=== PATIENT | male | born 1930 | race Caucasian/White ===

== ENCOUNTER 2016-09-06 07:23 | Emergency (ER) | payer MEDICARE, OTHER ==
[~2016-09-06] VITALS: Ht 175.3 cm; Wt 80.1 kg
[~2016-09-06 07:23] MED LIST: APIX2.5T PO; CARV6.252 PO; FURO1TAB93 PO; LEVO75TA41 PO; LISI-363 PO; MEVA40TA6 PO
[2016-09-06 07:27] VITALS: BP 143/74; PULSE 70; RESP 15; TEMP 97.7; O2SAT 95
[2016-09-06] MEDS ORDERED: CARV6.252 PO (07:43)
[2016-09-06] MEDS ORDERED: OMEGCAP PO (07:43)
[2016-09-06] MEDS ORDERED: ATOR40TA16 PO (07:43)
[2016-09-06] MEDS ORDERED: K-TA10TA PO (07:43)
[2016-09-06] MEDS ORDERED: LEVO75TA3 PO (07:43)
[2016-09-06] MEDS ORDERED: APIX5TAB PO (07:43)
[2016-09-06] MEDS ORDERED: FURO40TA PO (07:43)
[2016-09-06] MEDS ORDERED: LISI-515 PO (07:43)
[2016-09-06] MEDS ORDERED: LIDOCAINE HCL 1% 30 ML VIAL INFIL ONE (07:45)
--- NOTE | 2016-09-06 07:58 | PD ---
HPI Chief Complaint: Laceration/Skin Injury Time Seen by Provider: 07:42 Travel History International Travel<30 days: No Contact w/Intl Traveler<30days: No Traveled to known affect area: No History of Present Illness HPI Patient is an 86-year-old male who presents to emergency room with complaints of laceration to his left medial ankle. Patient reports that he was at home, reports that a clock fell onto his left ankle this morning. No fall or trauma to the head or neck after this injury. Patient's last tetanus was 7 years ago. Patient is on Eliquis. Patient reports that he was unable to control the bleeding at home. Patient with no other complaints. 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) Neurologic: Yes Psychiatric: No Reproductive: No Respiratory: No Immunizations Current: No Radiation Therapy: Yes (1996) Sleep Apnea: No Thyroid Disease: Yes (HYPOTHYROIDISM) Tetanus Vaccination: Unknown Influenza Vaccination: Yes ?: Not Past Surgical History Abdominal Surgery: Yes (COLON RESECTION) Cardiac Surgery: Yes (VALVE) Coronary Artery Bypass Graft: Yes (VALVE SURGERY) Eye Surgery: Yes (CATARACT REMOVAL) Thoracic Surgery: No Tonsillectomy: Yes Valve Replacement: Yes (2002 AORTIC ) Other Surgery: Yes (PROSTATE RADIATION) Social History Alcohol Use: Yes (OCCASIONALLY, WINE/BEER) Tobacco Use: No Substance Use: No Allergies-Medications (Allergen,Severity, Reaction): Coded Allergies: No Known Allergies (Verified , 09/06/16) Reported Meds & Prescriptions Reported Meds & Active Scripts Active Reported [place]-3 Fish Oil/Vitamin (Fish Oil-Cholecalciferol) 1,000-1,000 Mg Cap 1 Cap PO BID K-Tab (Potassium Chloride) 10 Meq Tab 10 Meq PO DAILY Atorvastatin (Atorvastatin Calcium) 40 Mg Tab 40 Mg PO HS Carvedilol 6.25 Mg Tab 6.25 Mg PO BID Lisinopril 20 Mg Tab 20 Mg PO DAILY Levothyroxine (Levothyroxine Sodium) 75 Mcg Tab 75 Mcg PO DAILY Furosemide 40 Mg Tab 40 Mg PO DAILY Eliquis (Apixaban) 5 Mg Tab 5 Mg PO BID Review of Systems General / Constitutional: No: Fever Eyes: No: Visual changes HENT: No: Headaches Cardiovascular: No: Chest Pain or Discomfort Respiratory: No: Shortness of Breath Gastrointestinal: No: Abdominal Pain Genitourinary: No: Dysuria Musculoskeletal: No: Pain Skin: Positive Other (laceration to left medial ankle), No Rash Neurologic: No: Weakness Psychiatric: No: Depression Endocrine: No: Polydipsia Hematologic/Lymphatic: No: Easy Bruising Physical Exam Narrative GENERAL: Well-nourished, well-developed patient. SKIN: Focused skin assessment warm/dry. Patient with 1 cm laceration to left medial ankle, bleeding controlled HEAD: Normocephalic. EYES: No scleral icterus. No injection or drainage. NECK: Supple, trachea midline. No JVD or lymphadenopathy. CARDIOVASCULAR: Regular rate and rhythm without murmurs, gallops, or rubs. RESPIRATORY: Breath sounds equal bilaterally. No accessory muscle use. GASTROINTESTINAL: Abdomen soft, non-tender, nondistended. MUSCULOSKELETAL: No cyanosis, or edema. BACK: Nontender without obvious deformity. No CVA tenderness. Data Data Last Documented VS Vital Signs Date Time Temp Pulse Resp B/P Pulse Ox O2 Delivery O2 Flow Rate FiO2 09/06/16 07:27 97.7 70 15 143/74 95 Orders Lidocaine 1% Inj (Xylocaine 1% Inj) (09/06/16 07:45) Dcae-Ukl-Aiyuju (Booster) Inj (Boostrix (09/06/16 08:00) Lidocaine 1% Inj (50 Ml) (Xylocaine 1% I (09/06/16 08:00) Tetanus/Diphtheria Tox Adult (Tetanus/Di (09/06/16 08:00) Bacitracin Oint Packet (Bacitracin Oint (09/06/16 08:00) MDM Medical Decision Making Medical Screen Exam Complete: Yes Emergency Medical Condition: Yes Interpretation(s) Vital Signs Date Time Temp Pulse Resp B/P Pulse Ox O2 Delivery O2 Flow Rate FiO2 09/06/16 07:27 97.7 70 15 143/74 95 Differential Diagnosis Laceration on Eliquis Narrative Course Patient is an 86-year-old male who presents to emergency room with complaints of a one centimeter laceration to his left medial ankle. Patient reports that a clock fell onto his ankle this morning. two simple interrupted sutures were placed to ankle. Patient will return to emergency room in 2 days for wound check. Signs and symptoms of when to return to emergency room was reviewed with patient detail. Procedures Procedure Narrative LACERATION LOCATION: left medial ankle LENGTH: 1cm NUMBER OF STITCHES/KAYLI: 2 single interrupted sutures using 4.0 prolene REPAIR: The area of the laceration was prepped with Betadine and sterilely draped. The laceration was infiltrated with 1% lidocaine. The wound was copiously irrigated and explored without evidence of foreign body, tendon injury or neurovascular injury. The wound was closed using 4.0 prolene. This was a single layer repair. A sterile dressing was applied. The patient was advised to keep the dressing clean and dry. Patient tolerated the procedure well. Diagnosis Primary Impression: Laceration of ankle, left Qualified Code: S91.012A - Laceration of ankle, left, initial encounter Patient Instructions: General Instructions Additional Instructions: Please follow up with your primary care doctor Suture removal in 7-[address] bac[address]racin dressings three times a day Return to ER in 48 hours for wound check or if you develop any signs of infection, redness or drainage to area Disposition: 01 DISCHARGE HOME Condition: Stable Jenny Caldwell DO Sep 06, 2016 07:58
[2016-09-06] MEDS ORDERED: LIDOCAINE HCL 1% 50 ML VIAL INFIL ONE (08:00)
[2016-09-06] MEDS ORDERED: BACITRACIN OINT 0.9 GM PKT TOPICAL ONE (08:00)
[2016-09-06] MEDS ORDERED: DIPHTH/TETANUS/ACEL PERTUSSIS (BOOSTER) 0.5 ML VIAL/PFS IM ONE (08:00)
[2016-09-06] MEDS ORDERED: TETANUS/DIPHTHERIA TOXOID ADULT 0.5 ML VIAL IM ONE (08:00)
== END 2016-09-06 08:41 | disposition home or self-care (01) ==
LOC: PHED 07:23
DX: S91.019A Laceration without foreign body, unspecified ankle, initial encounter (principal); E03.9 Hypothyroidism, unspecified; I10 Essential (primary) hypertension; H91.90 Unspecified hearing loss, unspecified ear; Z23 Encounter for immunization; I25.10 Atherosclerotic heart disease of native coronary artery without angina pectoris; I50.9 Heart failure, unspecified; Z79.01 Long term (current) use of anticoagulants; F41.9 Anxiety disorder, unspecified; Z95.1 Presence of aortocoronary bypass graft; Z95.2 Presence of prosthetic heart valve; Z86.73 Personal history of transient ischemic attack (TIA), and cerebral infarction without residual deficits
CPT/HCPCS: 12001; 90471; 90714

== ENCOUNTER 2016-11-25 11:50 | Emergency (ER) | payer MEDICARE ==
[~2016-11-25] VITALS: Ht 175.3 cm; Wt 84.0 kg
[~2016-11-25 11:50] MED LIST changes: -APIX2.5T PO; +APIX5TAB PO; +ATOR40TA16 PO; -FURO1TAB93 PO; +FURO40TA PO; +K-TA10TA PO; +LEVO75TA3 PO; -LEVO75TA41 PO; -LISI-363 PO; +LISI-515 PO; -MEVA40TA6 PO; +OMEGCAP PO
[2016-11-25 11:51] VITALS: BP 179/89; PULSE 59; RESP 18; TEMP 98.2; O2SAT 96
--- NOTE | 2016-11-25 11:56 | PD ---
Physical Exam Time Seen by Provider: 11:54 Narrative 86 y/o male here with h/a, nausea, dizziness. he woke up with these symptoms this morning. Denies acute focal weakness, slurred speech, facial droop, blurred vision. Vital signs reviewed. Seen at triage desk. Awaiting bed placement. Data Data Last Documented VS Vital Signs Date Time Temp Pulse Resp B/P Pulse Ox O2 Delivery O2 Flow Rate FiO2 11/25/16 11:51 98.2 59 18 179/89 96 Room Air [facility] Medical Record Reviewed: Yes Supervised Visit with TERENCE: Kong Walton Nov 25, 2016 11:56
--- NOTE | 2016-11-25 12:01 | PD ---
HPI Chief Complaint: Neuro Symptoms/ Deficits Time Seen by Provider: 12:01 Travel History International Travel<30 days: No Contact w/Intl Traveler<30days: No Traveled to known affect area: No History of Present Illness HPI 86-year-old male with history of CAD, CABG, cardiac catheter with stent placement, hypertension, BPH, presents to emergency department today for evaluation of an episode where he became nauseous, lightheaded, and almost passed out. This happened this morning. He states he also had associated headache. States now he is having very minimal symptoms. Reports a mild headache and feeling tired. Denies any head trauma. He did not actually pass out. No recent illnesses, fever, chills. No chest tightness. No other symptoms to report. 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) Neurologic: Yes Psychiatric: No Reproductive: No Respiratory: No Immunizations Current: No Radiation Therapy: Yes (1996) Sleep Apnea: No Thyroid Disease: Yes (HYPOTHYROIDISM) Past Surgical History Abdominal Surgery: Yes (COLON RESECTION) Cardiac Surgery: Yes (VALVE) Coronary Artery Bypass Graft: Yes (VALVE SURGERY) Eye Surgery: Yes (CATARACT REMOVAL) Thoracic Surgery: No Tonsillectomy: Yes Valve Replacement: Yes (2002 AORTIC ) Other Surgery: Yes (PROSTATE RADIATION) Social History Alcohol Use: Yes (OCCASIONALLY, WINE/BEER) Tobacco Use: No Substance Use: No Allergies-Medications (Allergen,Severity, Reaction): Coded Allergies: No Known Allergies (Verified , 11/25/16) Reported Meds & Prescriptions Reported Meds & Active Scripts Active Keflex (Cephalexin) 500 Mg Cap 500 Mg PO Q12H 10 Days Reported [place]-3 Fish Oil/Vitamin (Fish Oil-Cholecalciferol) 1,000-1,000 Mg Cap 1 Cap PO BID K-Tab (Potassium Chloride) 10 Meq Tab 10 Meq PO DAILY Atorvastatin (Atorvastatin Calcium) 40 Mg Tab 40 Mg PO HS Carvedilol 6.25 Mg Tab 6.25 Mg PO BID Lisinopril 20 Mg Tab 20 Mg PO DAILY Levothyroxine (Levothyroxine Sodium) 75 Mcg Tab 75 Mcg PO DAILY Furosemide 40 Mg Tab 40 Mg PO DAILY Eliquis (Apixaban) 5 Mg Tab 5 Mg PO BID Review of Systems Except as stated in HPI: all other systems reviewed are Neg Physical Exam Narrative GENERAL: Well-nourished elderly male patient, no acute distress SKIN: Focused skin assessment warm/dry. HEAD: Atraumatic. Normocephalic. EYES: Pupils equal and round. No scleral icterus. No injection or drainage. ENT: No nasal bleeding or discharge. Mucous membranes pink and moist. NECK: Trachea midline. No JVD. CARDIOVASCULAR: Bradycardic rate and rhythm. No murmur appreciated. RESPIRATORY: No accessory muscle use. Clear to auscultation. Breath sounds equal bilaterally. GASTROINTESTINAL: Abdomen soft, non-tender, nondistended. Hepatic and splenic margins not palpable. MUSCULOSKELETAL: No obvious deformities. No clubbing. No cyanosis. No edema. NEUROLOGICAL: Awake and alert. No obvious cranial nerve deficits. Motor grossly within normal limits. Normal speech. PSYCHIATRIC: Appropriate mood and affect; insight and judgment normal. Data Data Last Documented VS Vital Signs Date Time Temp Pulse Resp B/P Pulse Ox O2 Delivery O2 Flow Rate FiO2 11/25/16 14:43 63 24 162/83 11/25/16 14:41 98 Room Air 11/25/16 11:51 98.2 Orders Electrocardiogram (11/25/16 ) Complete Blood Count With Diff (11/25/16 12:34) Comprehensive Metabolic Panel (11/25/16 12:34) Magnesium (Mg) (11/25/16 12:34) B-Type Natriuretic Peptide (11/25/16 12:34) Ckmb (Isoenzyme) Profile (11/25/16 12:34) Troponin I (11/25/16 12:34) Act Partial Throm Time (Ptt) (11/25/16 12:34) Prothrombin Time / Inr (Pt) (11/25/16 12:34) Urinalysis - C+S If Indicated (11/25/16 12:34) Chest, Single Ap (11/25/16 12:34) Ct Brain W/O Iv Contrast(Rout) (11/25/16 12:34) Ecg Monitoring (11/25/16 12:34) Iv Access Insert/Monitor (11/25/16 12:34) Oximetry (11/25/16 12:34) Sodium Chloride 0.9% Flush (Ns Flush) (11/25/16 12:45) Orthostatic Vital Signs (11/25/16 13:25) CKMB (11/25/16 12:45) CKMB% (11/25/16 12:45) Urine Culture (11/25/16 15:15) Labs Laboratory Tests Test 11/25/16 11/25/16 12:45 15:15 White Blood Count 6.9 TH/MM3 Red Blood Count 4.40 MIL/MM3 Hemoglobin 13.7 GM/DL Hematocrit 41.1 % Mean Corpuscular Volume 93.5 FL Mean Corpuscular Hemoglobin 31.2 PG Mean Corpuscular Hemoglobin 33.4 % Concent Red Cell Distribution Width 14.4 % Platelet Count 146 TH/MM3 Mean Platelet Volume 8.5 FL Neutrophils (%) (Auto) 76.4 % Lymphocytes (%) (Auto) 10.8 % Monocytes (%) (Auto) 8.5 % Eosinophils (%) (Auto) 3.8 % Basophils (%) (Auto) 0.5 % Neutrophils # (Auto) 5.3 TH/MM3 Lymphocytes # (Auto) 0.7 TH/MM3 Monocytes # (Auto) 0.6 TH/MM3 Eosinophils # (Auto) 0.3 TH/MM3 Basophils # (Auto) 0.0 TH/MM3 CBC Comment DIFF FINAL Differential Comment Prothrombin Time 11.8 SEC Prothromb Time International 1.1 RATIO Ratio Activated Partial 29.5 SEC Thromboplast Time Sodium Level 141 MEQ/L Potassium Level 4.7 MEQ/L Chloride Level 106 MEQ/L Carbon Dioxide Level 27.7 MEQ/L Anion Gap 7 MEQ/L Blood Urea Nitrogen 24 MG/DL Creatinine 1.27 MG/DL Estimat Glomerular Filtration 54 ML/MIN Rate Random Glucose 86 MG/DL Calcium Level 9.1 MG/DL Magnesium Level 2.1 MG/DL Total Bilirubin 1.2 MG/DL Aspartate Amino Transf 32 U/L (AST/SGOT) Alanine Aminotransferase 30 U/L (ALT/SGPT) Alkaline Phosphatase 112 U/L Total Creatine Kinase 269 U/L Creatine Kinase MB 5.5 NG/ML Troponin I 0.02 NG/ML B-Type Natriuretic Peptide 275 PG/ML Total Protein 6.4 GM/DL Albumin 3.3 GM/DL Urine Color YELLOW Urine Turbidity CLEAR Urine pH 7.0 Urine Specific [place] 1.019 Urine Protein TRACE mg/dL Urine Glucose (UA) NEG mg/dL Urine Ketones NEG mg/dL Urine Occult Blood NEG Urine Nitrite NEG Urine Bilirubin NEG Urine Urobilinogen 2.0 MG/DL Urine Leukocyte Esterase MOD Urine RBC 1 /hpf Urine WBC 20 /hpf Urine Bacteria RARE /hpf Urine Mucus FEW /lpf Microscopic Urinalysis Comment CULTURE INDICATED MDM Medical Decision Making Medical Screen Exam Complete: Yes Emergency Medical Condition: Yes Medical Record Reviewed: Yes Differential Diagnosis Electrolyte abnormality versus orthostatic hypotension versus symptomatic bradycardia versus sick sinus syndrome Narrative Course 86-year-old male presents to [facility] department for evaluation. Patient appears without distress. No focal deficits or weakness. She is bradycardic with rate into the mid 40s. He is dizzy with orthostatic vital signs, however his vital signs remained stable. Laboratory Tests Test 11/25/16 11/25/16 12:45 15:15 White Blood Count 6.9 TH/MM3 Red Blood Count 4.40 MIL/MM3 Hemoglobin 13.7 GM/DL Hematocrit 41.1 % Mean Corpuscular Volume 93.5 FL Mean Corpuscular Hemoglobin 31.2 PG Mean Corpuscular Hemoglobin 33.4 % Concent Red Cell Distribution Width 14.4 % Platelet Count 146 TH/MM3 Mean Platelet Volume 8.5 FL Neutrophils (%) (Auto) 76.4 % Lymphocytes (%) (Auto) 10.8 % Monocytes (%) (Auto) 8.5 % Eosinophils (%) (Auto) 3.8 % Basophils (%) (Auto) 0.5 % Neutrophils # (Auto) 5.3 TH/MM3 Lymphocytes # (Auto) 0.7 TH/MM3 Monocytes # (Auto) 0.6 TH/MM3 Eosinophils # (Auto) 0.3 TH/MM3 Basophils # (Auto) 0.0 TH/MM3 CBC Comment DIFF FINAL Differential Comment Prothrombin Time 11.8 SEC Prothromb Time International 1.1 RATIO Ratio Activated Partial 29.5 SEC Thromboplast Time Sodium Level 141 MEQ/L Potassium Level 4.7 MEQ/L Chloride Level 106 MEQ/L Carbon Dioxide Level 27.7 MEQ/L Anion Gap 7 MEQ/L Blood Urea Nitrogen 24 MG/DL Creatinine 1.27 MG/DL Estimat Glomerular Filtration 54 ML/MIN Rate Random Glucose 86 MG/DL Calcium Level 9.1 MG/DL Magnesium Level 2.1 MG/DL Total Bilirubin 1.2 MG/DL Aspartate Amino Transf 32 U/L (AST/SGOT) Alanine Aminotransferase 30 U/L (ALT/SGPT) Alkaline Phosphatase 112 U/L Total Creatine Kinase 269 U/L Creatine Kinase MB 5.5 NG/ML Troponin I 0.02 NG/ML B-Type Natriuretic Peptide 275 PG/ML Total Protein 6.4 GM/DL Albumin 3.3 GM/DL Urine Color YELLOW Urine Turbidity CLEAR Urine pH 7.0 Urine Specific [place] 1.019 Urine Protein TRACE mg/dL Urine Glucose (UA) NEG mg/dL Urine Ketones NEG mg/dL Urine Occult Blood NEG Urine Nitrite NEG Urine Bilirubin NEG Urine Urobilinogen 2.0 MG/DL Urine Leukocyte Esterase MOD Urine RBC 1 /hpf Urine WBC 20 /hpf Urine Bacteria RARE /hpf Urine Mucus FEW /lpf Microscopic Urinalysis Comment CULTURE INDICATED Last Impressions Head CT 11/25/16 1234 Signed Impressions: Service Date/Time: Friday, November 25, 2016 13:49 - CONCLUSION: Chronic and small vessel ischemic changes without any evidence for acute hemorrhage or mass effect. Brendan Elizabeth MD Chest X-Ray 11/25/16 1234 Signed Impressions: Service Date/Time: Friday, November 25, 2016 12:35 - CONCLUSION: 1. No acute cardiopulmonary findings. 2. Postsurgical changes. 3. Stable compared to previous. Mansoor Stephen MD I discussed the patient with my attending physician who recommends contacting his gamb cutter. I discussed him with Dr. Ely who very familiar with him and unless the patient wants to stay for pacer placement, he feels comfortable with patient following up with him in the office this week. Patient is thrilled with this news and is excited to be discharged. He agrees to return immediately with any acute worsening of symptoms. Diagnosis Primary Impression: Postural dizziness with near syncope Additional Impressions: Bradycardia UTI (urinary tract infection) Qualified Code: N39.0 - Urinary tract infection without hematuria, site unspecified Referrals: Dereje Ely MD Primary Care Physician Patient Instructions: Bradycardia (ED), General Instructions, Urinary Tract Infection in Men (DC) Additional Instructions: Follow-up with her primary care provider Contact Dr. Juarez's office for follow-up this week Return immediately with any acute worsening of symptoms Med/Other Pt SpecificInfo: Prescription(s) given Scripts Cephalexin (Keflex)500 Mg Aol333 Mg PO Q12H 10 Days Ref 0 Prov:Sarah Beth Hart 11/25/16 Disposition: 01 DISCHARGE HOME Condition: Stable Sarah Beth Hart Nov 25, 2016 12:01
[2016-11-25 12:11] VITALS: BP 133/71; PULSE 67; RESP 18; O2SAT 98
[2016-11-25] MEDS ORDERED: SODIUM CHLORIDE 0.9% FLUSH 10 ML FLUSH IVF PRN (12:45)
[2016-11-25 13:07] LABS: AUTOMATED NEUTROPHIL # 5.3 TH/MM3 (1.8-7.7); BASOPHIL % 0.5 % (0.0-2.0); EOSINOPHIL # 0.3 TH/MM3 (0-0.4); EOSINOPHIL % 3.8 % (0.0-4.0); HEMATOCRIT 41.1 % (39.0-51.0); HEMO FLAGS DIFF FINAL; LYMPH % 10.8 % (9.0-44.0); LYMPHOCYTE # 0.7 TH/MM3 (1.0-4.8); MEAN CELL VOLUME 93.5 FL (80.0-100.0); MEAN CORPUSCULAR HEMOGLOBIN 31.2 PG (27.0-34.0); MEAN CORPUSCULAR HGB CONC 33.4 % (32.0-36.0); MONO % 8.5 % (0.0-8.0); NEUT % 76.4 % (16.0-70.0); PLATELET COUNT 146 TH/MM3 (150-450); RED CELL DISTRIBUTION WIDTH 14.4 % (11.6-17.2); WHITE BLOOD COUNT 6.9 TH/MM3 (4.0-11.0)
[2016-11-25 13:21] LABS: APTT (PATIENT) 29.5 SEC (24.3-30.1); INTERNATIONAL NORMALIZED RATIO 1.1 RATIO; PROTHROMBIN TIME - PATIENT 11.8 SEC (9.8-11.6)
--- NOTE | 2016-11-25 13:21 | RADRPT ---
EXAM DATE/TIME: 11/25/2016 12:35 [facility] COMPARISON: CHEST PA & LAT, June 22, 2015, 19:51. INDICATIONS : Dizzy, nauseous. MEDICAL HISTORY : heart attack at 11. SURGICAL HISTORY : CABG. ENCOUNTER: Initial ACUITY: 1 day PAIN SCORE: 0/10 LOCATION: Bilateral chest FINDINGS: The heart is at the upper limits of normal in size. The patient is post median sternotomy. There are chronic interstitial changes within the pulmonary parenchyma. The lungs are otherwise clear. The visu alized bony structures are intact. CONCLUSION: 1. No acute cardiopulmonary findings. 2. Postsurgical changes. 3. Stable compared to previous. Mansoor Stephen MD on November 25, 2016 at 13:17 Board Certified Radiologist. This report was verified electronically.
[2016-11-25 13:37] LABS: ANION GAP 7 MEQ/L (5-15); AST (GOT) 32 U/L (15-37); BICARBONATE 27.7 MEQ/L (21.0-32.0); BLOOD UREA NITROGEN 24 MG/DL (7-18); CHLORIDE 106 MEQ/L (98-107); GLOMERULAR FILTRATION RATE 54 ML/MIN (>89); MAGNESIUM 2.1 MG/DL (1.5-2.5); POTASSIUM 4.7 MEQ/L (3.5-5.1); SODIUM (NA) 141 MEQ/L (136-145)
[2016-11-25 13:38] LABS: ALT (GPT) 30 U/L (12-78)
[2016-11-25 13:42] LABS: ALKALINE PHOSPHATASE 112 U/L (45-117); CREATINE KINASE 269 U/L (39-308); TOTAL BILIRUBIN ADULT 1.2 MG/DL (0.2-1.0)
[2016-11-25 13:57] LABS: CKMB 5.5 NG/ML (0.5-3.6)
--- NOTE | 2016-11-25 14:27 | RADRPT ---
EXAM DATE/TIME: 11/25/2016 13:49 [facility] COMPARISON: CT BRAIN W/O CONTRAST, November 12, 2012, 19:07. INDICATIONS : Headache,nausea dizzy,recent stroke. RADIATION DOSE: 33.83 CTDIvol (mGy) MEDICAL HISTORY : Hypothyroidism. Cardiovascular disease Hypertension.Colon cancer,prostate cancer SURGICAL HISTORY : Colon resection. CABG ENCOUNTER: Initial ACUITY: 1 day PAIN SCALE: 5/10 LOCATION: cranial TECHNIQUE: Multiple contiguous axial images were obtained of the head. Using automated exposure control and adj ustment of the mA and/or kV according to patient size, radiation dose was kept as low as reasonably a chievable to obtain optimal diagnostic quality images. DICOM format image data is available electro nically for review and comparison. FINDINGS: There is no evidence for intracranial hemorrhage, mass effect, mass lesions, or edema. The visualize d bony structures appear intact. Moderate degree of brain atrophy is seen. Moderate periventricular white matter changes are seen nonspecific mostly consistent with chronic small vessel ischemic change s. There are no signs of acute infarction for technique. CONCLUSION: Chronic and small vessel ischemic changes without any evidence for acute hemorrhage o r mass effect. Brendan Elizabeth MD on November 25, 2016 at 14:24 Board Certified Radiologist. This report was verified electronically.
[2016-11-25 14:41] VITALS: BP 145/69; PULSE 50; RESP 16; RESP 21; O2SAT 98
[2016-11-25 14:43] VITALS: BP 162/83; RESP 24
[2016-11-25 15:32] LABS: BACTERIA, URINE RARE /hpf; BLOOD, URINE NEG (NEG); COMMENT (UR) CULTURE INDICATED; CULTURE IF INDICATED CULTURE INDICATED; GLUCOSE,URINE NEG (NEG); KETONE, URINE NEG (NEG); MUCUS URINE FEW /lpf (OCC); NITRITE,URINE NEG (NEG); URINE COLOR YELLOW (YELLW/STRAW)
[2016-11-25] MEDS ORDERED: CEPH-460 PO (15:51)
--- NOTE | 2016-11-26 17:12 | EKG ---
Date Performed: 11/25/2016 Time Performed: 12:07:02 PTAGE: 86 years EKG: SINUS BRADYCARDIA WITH FIRST DEGREE AV BLOCK INFERIOR MYOCARDIAL INFARCTION ABNORMAL ECG PREVIOUS TRACING : 06/22/2015 19.22 Compared to the previous tracing PVCs no longer present DOCTOR: Bethany Smith Interpretating Date/Time 11/26/2016 17:10:53
== END 2016-11-25 16:10 | disposition home or self-care (01) ==
LOC: NEPC 11:50
DX: R42 Dizziness and giddiness (principal); R55 Syncope and collapse; R00.1 Bradycardia, unspecified; N39.0 Urinary tract infection, site not specified; R11.0 Nausea; Z95.1 Presence of aortocoronary bypass graft; R51 Headache; E03.9 Hypothyroidism, unspecified; I11.0 Hypertensive heart disease with heart failure; I44.0 Atrioventricular block, first degree; H91.93 Unspecified hearing loss, bilateral; R94.31 Abnormal electrocardiogram [ECG] [EKG]; Z79.01 Long term (current) use of anticoagulants; H91.90 Unspecified hearing loss, unspecified ear; I50.9 Heart failure, unspecified; Z95.2 Presence of prosthetic heart valve
CPT/HCPCS: 70450; 71010; 80053; 81001; 82550; 82552; 83735; 83880; 84484; 85025; 85610; 85730; 87086; 93005; 99285